=== PATIENT | male | born 1975 | race Caucasian/White ===

== ENCOUNTER 2018-05-14 14:23 | Emergency (ER) | payer OTHER ==
[2018-05-14 14:55] VITALS: BMI 36.1
--- NOTE | 2018-05-14 14:56 | PDOC ---
Rapid Medical Evaluation Time Seen by Provider: 05/14/18 14:52 Medical Evaluation: Allergies Allergy/AdvReac Type Severity Reaction Status Date / Time No Known Allergies Allergy Verified 04/02/16 10:34 05/14/18 14:52 Pt presents for two days of knee pain. Pt states he woke yesterday with pain in his L knee. Denies trauma or falling. Pt works at a [employer]. Smokes a pack a day Exam: Effusion palpable to the suprapatellar region. Pain with palpation to the posterior knee. Orders: X-ray, US, Labs Pt to proceed to ED for further evaluation Discharge Disposition - Diagnosis Left knee pain - Referrals - Patient Instructions - Post Discharge Activity
[2018-05-14] MEDS ORDERED: ACETAMINOPHEN 1000 MG/100 ML VIAL (NON FORMULARY) IVPB ONE (15:25)
[2018-05-14 15:42] LABS: BASO % 0.5 % (0-2.0); EOS % 1.8 % (0-4.5); HEMATOCRIT 43.5 % (35.4-49); LYMPH % 24.3 % (8-40); MCH 30.1 pg (25.7-33.7); MCHC 34.5 g/dl (32.0-35.9); MEAN CELL VOLUME 87.3 fl (80-96); MEAN PLT VOLUME 8.9 fl (7.5-11.1); MONO % 8.5 % (3.8-10.2); NEUT % 64.9 % (42.8-82.8); PLATELET COUNT 202 K/MM3 (134-434); RBC 4.98 M/mm3 (4.00-5.60); RDW 13.2 % (11.9-15.9)
[2018-05-14 15:59] LABS: ALBUMIN 4.1 g/dl (3.4-5.0); ALK PHOS 91 U/L (45-117); ANION GAP 7 MMOL/L (8-16); BILIRUBIN,TOTAL 0.6 mg/dL (0.2-1); BLOOD UREA NITROGEN 16 mg/dL (7-18); CHLORIDE 101 mmol/L (98-107); CO2 28 mmol/L (22-28); CREATININE 0.8 mg/dL (0.55-1.3); GLUCOSE,RANDOM 115 mg/dL (74-106); POTASSIUM 4.3 mmol/L (3.5-5.1); SGOT/AST 29 U/L (15-37); SGPT/ALT 52 U/L (13-61); SODIUM 136 mmol/L (136-145); TOT PROT 7.5 g/dl (6.4-8.2); URIC ACID 5.1 mg/dL (2.6-7.2)
[2018-05-14] MEDS ORDERED: ACETAMINOPHEN INJECTION 100 ML IVPB ONE (16:00)
--- NOTE | 2018-05-14 16:17 | PDOC ---
History of Present Illness - General Chief Complaint: Pain, Acute Stated Complaint: KNEE PAIN Time Seen by Provider: 05/14/18 14:52 History Source: Patient Exam Limitations: No Limitations - History of Present Illness Initial Comments: 05/14/18 16:12 The patient is a 43M with no PMH who presents to the ER with complaints of L knee pain. The patient states that he woke up yesterday and felt pain in his knee. He was able to work, but this morning when he woke up he was not able to get out of bed. He took motrin without relief. He describes a sharp pain just proximal to his L patella and states that he feels warmth throughout it. He has never had this in the past. He denies any new sexual contacts. He denies any bites, cuts, or trauma to his knee. Past History - Past Medical History Allergies/Adverse Reactions: Allergies Allergy/AdvReac Type Severity Reaction Status Date / Time No Known Allergies Allergy Verified 04/02/16 10:34 Home Medications: Ambulatory Orders Naproxen [Naprosyn -] 500 mg PO BID #14 tablet 05/14/18 Sennosides [Senna] 8.6 mg PO DAILY 05/14/18 COPD: No - Immunization History Immunization Up to Date: No - Suicide/Smoking/Psychosocial Hx Smoking Status: Yes Smoking History: Current every day smoker Have you smoked in the past 12 months: Yes Number of Cigarettes Smoked Daily: 20 Information on smoking cessation initiated: No 'Breaking Loose' booklet given: 04/02/16 Hx Alcohol Use: No Drug/Substance Use Hx: No Substance Use Type: None Review of Systems - Review of Systems Able to Perform ROS?: Yes Comments:: 05/14/18 16:18 GENERAL/CONSTITUTIONAL: No fever or chills. No weakness. HEAD, EYES, EARS, NOSE AND THROAT: No change in vision. No ear pain or discharge. No sore throat. CARDIOVASCULAR: No chest pain, palpitations, or lightheadedness. RESPIRATORY: No cough, wheezing, shortness of breath, or hemoptysis. GASTROINTESTINAL: No nausea, vomiting, diarrhea, constipation, or abdominal pain. GENITOURINARY: No dysuria, frequency, hematuria, or change in urination. MUSCULOSKELETAL: Positive for pain in L knee. No neck or back pain. SKIN: No rash or lesions. NEUROLOGIC: No headache, numbness, tingling, focal weakness, loss of consciousness, or change in strength/sensation. Is the patient limited [place] proficient: No *Physical Exam - Vital Signs Last Vital Signs Temp Pulse Resp BP Pulse Ox 98.2 F 90 18 169/83 97 05/14/18 14:53 05/14/18 14:53 05/14/18 14:53 05/14/18 14:53 05/14/18 14:53 - Physical Exam Comments: 05/14/18 16:28 GENERAL: Well developed, well nourished. Awake and alert. No acute distress. HEENT: Normocephalic, atraumatic. Hearing grossly normal. Moist mucous membranes. NECK: Supple. Full ROM. MUSCULOSKELETAL: Limited ROM in L knee. TTP over proximal aspect of L knee. Warm and erythematous. EXTREMITIES: No cyanosis. No clubbing. No edema. No calf tenderness or swelling. SKIN: Warm and dry. Normal capillary refill. No rashes. No jaundice. NEUROLOGICAL: Alert, awake, appropriate. Cranial nerves 2-12 intact. Normal speech. Gait is ataxic. PSYCHIATRIC: Cooperative. Good eye contact. Appropriate mood and affect. ED Treatment Course - LABORATORY CBC & Chemistry Diagram: 05/14/18 15:05 05/14/18 15:05 - ADDITIONAL ORDERS Additional order review: Laboratory Results 05/14/18 15:05 Sodium 136 Potassium 4.3 Chloride 101 Carbon Dioxide 28 Anion Gap 7 L BUN 16 Creatinine 0.8 Creat Clearance w eGFR > 60 Random Glucose 115 H Uric Acid 5.1 Calcium 9.0 Total Bilirubin 0.6 AST 29 ALT 52 Alkaline Phosphatase 91 Total Protein 7.5 Albumin 4.1 05/14/18 15:05 RBC 4.98 MCV 87.3 MCHC 34.5 RDW 13.2 MPV 8.9 Neutrophils % 64.9 Lymphocytes % 24.3 Monocytes % 8.5 Eosinophils % 1.8 Basophils % 0.5 Medical Decision Making - Medical Decision Making 05/14/18 16:28 The patient is a 43M with no PMH who presents with acute onset L knee pain, concerning for gout, septic arthritis. Will d/w attending regarding tapping joint. Labs pending. Pt is slightly uncomfortable appearing. Will give IV tylenol as we do not currently know cause of pain. 05/14/18 17:01 Pt is tender specifically at quadriceps tendon, making this likely a tendonitis. 05/14/18 17:06 US negative for DVT. 05/14/18 17:13 Pt ambulated with me with less pain. Will d/c with naprosyn and ortho f/u. *DC/Admit/Observation/Transfer Diagnosis at time of Disposition: Left knee pain Qualifiers: Chronicity: acute Qualified Code(s): M25.562 - Pain in left knee - Discharge Dispostion Disposition: HOME Condition at time of disposition: Stable Decision to Admit order: No - Prescriptions Prescriptions: Naproxen [Naprosyn -] 500 mg PO BID #14 tablet - Referrals Referrals: Herb Mobley MD [Primary Care Provider] - Hugo Lim MD [Staff Physician] - - Patient Instructions Printed Discharge Instructions: DI for Knee Pain Additional Instructions: Please follow up with Dr. Flores or Carina in 2-3 days. Also follow up with your primary care doctor within a week. Return to the ER if you have any worsening pain or redness in your knee. Please return to the ER if you have any signs or symptoms of chest pain, shortness of breath, uncontrollable fever, chills, nausea, vomiting, numbness, tingling, or weakness in any part of your body, changes in vision, or slurred speech. Please take your medications as prescribed (Naprosyn) and with food. Please return to the ER if symptoms persist, worsen, or new symptoms arise. - Post Discharge Activity
[2018-05-14] MEDS ORDERED: KETOROLAC TROMETHAMINE 15 MG/ML VIAL IVPUSH ONE (16:57)
[2018-05-14] MEDS ORDERED: KETOROLAC TROMETHAMINE 15 MG/ML VIAL ONE (17:03)
--- NOTE | 2018-05-14 17:08 | PDOC ---
Attending Attestation - Resident Resident Name: Matthew Dominguez - ED Attending Attestation I have performed the following: I have examined & evaluated the patient, The case was reviewed & discussed with the resident, I agree w/resident's findings & plan, Exceptions are as noted - HPI HPI: 05/14/18 17:03 The patient is a 43 year old male, with no significant past medical history, who presents to the emergency department with 2 days of left knee pain since yesterday morning. Pt states that he awoke in the morning feeling a tightness in his knee. He reportedly worked throughout the day yesterday. However, he woke up with increased pain to the knee and difficulty ambulating today. He denies numbness or tingling. 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 Pt denies any significant swelling to his knee or leg. Denies any F/ C. Denies any h/o gout. The patient denies chest pain, shortness of breath, headache and dizziness. The patient denies fever, chills, nausea, vomit, diarrhea and constipation. The patient denies dysuria, frequency, urgency and hematuria. Allergies: NKDA - Physicial Exam PE: 05/14/18 17:04 "GENERAL: Awake, alert, and fully oriented, in no acute distress. HEAD: No signs of trauma EYES: PERRLA, EOMI, sclera anicteric, conjunctiva clear ENT: Auricles normal inspection, hearing grossly normal, nares patent, oropharynx clear without exudates. Moist mucosa NECK: Nontender, no stepoffs, Normal ROM, supple, no lymphadenopathy, JVD, or masses LUNGS: Breath sounds equal, clear to auscultation bilaterally. No wheezes, and no crackles HEART: Regular rate and rhythm, normal S1 and S2, no murmurs, rubs or gallops ABDOMEN: Soft, nontender, normoactive bowel sounds. No guarding, no rebound. No masses EXTREMITIES: + LLE with TTP over quadriceps tendon, no jointline tenderness, no knee effusion, no erythema, neurovascularly intact distally NEUROLOGICAL: Cranial nerves II through XII intact. 5/5 strength and sensation in all extremities, Normal speech, normal gait, normal cerebellar function SKIN: Warm, Dry, normal turgor, no rashes or lesions noted. - Medical Decision Making 05/14/18 17:06 43 M with L knee pain, found to be tender over quadriceps tendon. Likely quadriceps tendonitis. Pt with no joint effusion to suggest gout or septic arthritis. Compartments all soft, no evidence of compartment syndrome. Pt with palpable pulses distally, no concern for arterial occlusion. - Labs - US to r/o DVT - XR - Pain control 05/14/18 17:09 XR negative on my read US negative for DVT Pt is well appearing, with normal vitals. Clinically stable for DC at this time. I discussed the physical exam findings, ancillary test results and final diagnoses with the patient. I answered all of the patient's questions. The patient was satisfied with the care received and felt comfortable with the discharge plan and treatment plan. The patient agrees to follow up with the primary care physician within 24-72 hours.
[2018-05-14 17:39] VITALS: BP 125/69; PULSE 72; TEMP 97.9
== END 2018-05-14 17:35 | disposition home or self-care (01) ==
LOC: JER 14:23
PROC: 3E033NZ Introduction of Analgesics, Hypnotics, Sedatives into Peripheral Vein, Percutaneous Approach (ICD-10-PCS; principal; 2018-05-14)
PROC: 3E0333Z Introduction of Anti-inflammatory into Peripheral Vein, Percutaneous Approach (ICD-10-PCS; 2018-05-14)
DX: M25.562 Pain in left knee (principal)
CPT/HCPCS: 36415; 73560-TC-LT-FY; 80053; 84550; 85025; 93971-TC; 96374; 96375; 99283-25; J0131

== ENCOUNTER 2020-07-14 20:04 | Emergency (ER) | payer OTHER ==
[2020-07-14 20:50] VITALS: BP 164/98; PULSE 81; TEMP 97.3; BMI 34.7
[2020-07-14 22:23] LABS: EOS % 1.7 % (0-4.5); HEMATOCRIT 49.7 % (35.4-49); HEMOGLOBIN 16.6 GM/dL (11.7-16.9); LYMPH % 22.9 % (8-40); MCH 29.9 pg (25.7-33.7); MCHC 33.4 g/dl (32.0-35.9); MEAN CELL VOLUME 89.5 fl (80-96); MEAN PLT VOLUME 9.4 fl (7.5-11.1); MONO % 8.2 % (3.8-10.2); NEUT % 66.2 % (42.8-82.8); RBC 5.55 M/mm3 (4.00-5.60); RDW 13.7 % (11.9-15.9); WHITE BLOOD COUNT 10.6 K/mm3 (4.0-10.0)
[2020-07-14 22:28] LABS: PLATELET COUNT 220 K/MM3 (134-434)
[2020-07-14 22:37] LABS: CHLORIDE 103 mmol/L (98-107); SODIUM 136 mmol/L (136-145)
[2020-07-14 22:39] LABS: CALCIUM 9.2 mg/dL (8.5-10.1)
[2020-07-14 22:40] LABS: ALBUMIN 4.4 g/dl (3.4-5.0); ANION GAP 5 MMOL/L (8-16); BLOOD UREA NITROGEN 8.5 mg/dL (7-18); CO2 28 mmol/L (21-32); GLUCOSE,RANDOM 88 mg/dL (74-106)
[2020-07-14 22:43] LABS: CREATININE 0.8 mg/dL (0.55-1.3); SGOT/AST 15 U/L (15-37); SGPT/ALT 29 U/L (13-61)
[2020-07-14 22:45] LABS: BILIRUBIN,TOTAL 0.7 mg/dL (0.2-1); TOT PROT 7.9 g/dl (6.4-8.2)
[2020-07-14 22:46] LABS: ALK PHOS 80 U/L (45-117)
== END 2020-07-15 00:10 | disposition home or self-care (01) ==
LOC: JER 20:04
DX: R07.9 Chest pain, unspecified (principal); R06.02 Shortness of breath
CPT/HCPCS: 36415; 71046-TC-FY; 80053; 82550; 84484; 85025; 93005; 93010; 99285-25; C9803; U0003

== ENCOUNTER 2020-12-19 18:39 | Emergency (ER) | payer OTHER ==
[2020-12-19 19:04] VITALS: BMI 36.1
[2020-12-19] MEDS ORDERED: LACTATED RINGERS SOLUTION 1000 ML INFUS.BAG IV ONE (19:25)
[2020-12-19] MEDS ORDERED: ACETAMINOPHEN 325 MG TABLET (FP) PO ONE (19:25)
[2020-12-19] MEDS ORDERED: ACETAMINOPHEN 325 MG TABLET (FP) ONE (19:42)
[2020-12-19 20:19] LABS: BASO % 0.8 % (0-2.0); EOS % 1.3 % (0-4.5); HEMATOCRIT 44.9 % (35.4-49); HEMOGLOBIN 15.9 GM/dL (11.7-16.9); LYMPH % 27.7 % (8-40); MCH 31.3 pg (25.7-33.7); MCHC 35.4 g/dl (32.0-35.9); MEAN CELL VOLUME 88.3 fl (80-96); MEAN PLT VOLUME 8.3 fl (7.5-11.1); MONO % 8.4 % (3.8-10.2); NEUT % 61.8 % (42.8-82.8); PLATELET COUNT 190 10^3/uL (134-434); RBC 5.09 M/mm3 (4.00-5.60); RDW 13.8 % (11.9-15.9); WHITE BLOOD COUNT 8.4 K/mm3 (4.0-10.0)
[2020-12-19 20:37] LABS: CHLORIDE 99 mmol/L (98-107); SODIUM 135 mmol/L (136-145)
[2020-12-19 20:39] LABS: CALCIUM 8.8 mg/dL (8.5-10.1)
[2020-12-19 20:40] LABS: ALBUMIN 3.8 g/dl (3.4-5.0); ANION GAP 11 MMOL/L (8-16); BLOOD UREA NITROGEN 20.4 mg/dL (7-18); CO2 25 mmol/L (21-32); GLUCOSE,RANDOM 110 mg/dL (74-106)
[2020-12-19 20:43] LABS: CREATININE 0.7 mg/dL (0.55-1.3)
[2020-12-19 20:44] LABS: BILIRUBIN,TOTAL 0.7 mg/dL (0.2-1)
[2020-12-19 20:46] LABS: ALK PHOS 80 U/L (45-117)
[2020-12-19 21:02] LABS: SGOT/AST 32 U/L (15-37)
[2020-12-19 21:18] LABS: SGPT/ALT 45 U/L (13-61); TOT PROT 7.5 g/dl (6.4-8.2)
[2020-12-19 21:36] VITALS: BP 125/86; PULSE 82; TEMP 98.3
== END 2020-12-19 21:36 | disposition home or self-care (01) ==
LOC: JER 18:39
DX: F41.9 Anxiety disorder, unspecified (principal); R42 Dizziness and giddiness
CPT/HCPCS: 36415; 80053; 82550; 84484; 85025; 93005; 93010; 99284-25

== ENCOUNTER 2021-04-27 10:57 | Emergency (ER) | payer OTHER ==
[2021-04-27 11:13] VITALS: BP 109/66; PULSE 106; TEMP 98.3; BMI 38.4
== END 2021-04-27 14:17 | disposition home or self-care (01) ==
LOC: JER 10:57
DX: R50.9 Fever, unspecified (principal)
CPT/HCPCS: 87804; 99283-25; C9803; U0003; U0005

== ENCOUNTER 2022-01-19 22:27 | Emergency (ER) | payer OTHER ==
[2022-01-19 22:36] VITALS: BP 137/85; PULSE 61; TEMP 98; BMI 38.9
== END 2022-01-20 02:50 | disposition home or self-care (01) ==
LOC: JER 22:27
DX: S69.91XA Unspecified injury of right wrist, hand and finger(s), initial encounter (principal)
CPT/HCPCS: 73090-TC-RT-FY; 73110-TC-RT-FY; 73130-TC-RT-FY; 99284-25

== ENCOUNTER 2022-08-29 04:11 | Emergency (ER) | payer OTHER ==
[2022-08-29 05:10] VITALS: BP 141/90; PULSE 107; RESP 19; TEMP 98; BMI 40.4
[2022-08-29] MEDS ORDERED: LIDOCAINE HCL 2% JELLY (30 ML/TUBE) TP ONE (05:42)
[2022-08-29] MEDS ORDERED: LIDOCAINE HCL 2% JELLY 11 ML TP ONE (05:45)
== END 2022-08-29 06:37 | disposition home or self-care (01) ==
LOC: JER 04:11
DX: K60.0 Acute anal fissure (principal)
CPT/HCPCS: 99283-25

== ENCOUNTER 2023-05-24 21:33 | Emergency (ER) | payer OTHER ==
[2023-05-24 21:39] VITALS: BP 108/61; PULSE 80; RESP 16; TEMP 98.5; BMI 34.0
[2023-05-24] MEDS ORDERED: NAPROXEN 500 MG TABLET PO ONE (23:23)
[2023-05-24] MEDS ORDERED: NAPROXEN 500 MG TABLET ONE (23:31)
== END 2023-05-24 23:41 | disposition home or self-care (01) ==
LOC: FER 21:33
DX: M79.605 Pain in left leg (principal)
CPT/HCPCS: 93971-TC; 99284-25

== ENCOUNTER 2023-10-18 12:32 | Emergency (ER) | payer OTHER ==
[2023-10-18 12:41] VITALS: BP 100/66; PULSE 91; RESP 18; TEMP 98.3; BMI 34.0
[2023-10-18] MEDS ORDERED: DIPHTH,PERTUSS(ACELL),TET 0.5 ML DISP.SYRIN IM ONE (14:03)
[2023-10-18] MEDS: DIPHTH,PERTUSS(ACELL),TET 0.5 ML DISP.SYRIN IM ONE (14:51)
== END 2023-10-18 14:52 | disposition home or self-care (01) ==
LOC: JER 12:32
PROC: 3E0234Z Introduction of Serum, Toxoid and Vaccine into Muscle, Percutaneous Approach (ICD-10-PCS; principal; 2023-10-18)
DX: L03.116 Cellulitis of left lower limb (principal); R50.9 Fever, unspecified; R53.1 Weakness
CPT/HCPCS: 90715; 99284-25